=== PATIENT | male | born 1980 ===

== ENCOUNTER 2018-05-01 15:11 | Emergency (ER) | payer SELFPAY ==
[2018-05-01 15:19] VITALS: BMI 23.5
[2018-05-01 15:25] VITALS: PULSE 78; RESP 18; TEMP 98.7
--- NOTE | 2018-05-01 15:35 | ED PDOC ---
Arrival/HPI - General Chief Complaint: ENT Problem Time Seen by Provider: 05/01/18 15:14 Historian: Patient - History of Present Illness Narrative History of Present Illness (Text): 05/01/18 15:30 37 year old male, pmh including hyperthyroidism, nkda, here at the ER for biopsy for outpatient procedure. Pt. has hyperthryoidism, taking methimazole, on 03/24/2018 TSH less than 0.005/T4 24.9/T3 651. The follow up 04/15/2018 Thyroid panel TSH 0.005, T4 12.5/T3 358. Pt. was seen by the pmd Dr. Valenzuela about 2 days ago and gone over the result along with the thyroid sonogram result show multiple nodules which he would need outpatient ENT/Surgical speciality biopsy but he came to the ER instead. Pt. has no fever or chills, no night sweat, no rash, no numbness or tingling, no palpitation, no change in vision, no night sweat, no other medical or psychological complaints. Past Medical History - Provider Review Nursing Documentation Reviewed: Yes - Cardiac Hx Cardiac Disorders: No - Pulmonary Hx Respiratory Disorders: No - Neurological Hx Neurological Disorder: No - HEENT Hx HEENT Disorder: No - Renal Hx Renal Disorder: No - Endocrine/Metabolic Hx Endocrine Disorders: No - Hematological/Oncological Hx Blood Disorders: No - Integumentary Hx Dermatological Disorder: No - Musculoskeletal/Rheumatological Hx Musculoskeletal Disorders: No - Gastrointestinal Hx Gastritis: Yes - Genitourinary/Gynecological Hx Genitourinary Disorders: No - Psychiatric Hx Psychophysiologic Disorder: No Hx Substance Use: No Family/Social History - Physician Review Nursing Documentation Reviewed: Yes Family/Social History: Unknown Family HX Smoking Status: Never Smoked Hx Alcohol Use: No Hx Substance Use: No Allergies/Home Meds Allergies/Adverse Reactions: Allergies No Known Allergies Allergy (Verified 05/01/18 15:30) Home Medications: Home Meds Medication Instructions Recorded Confirmed No Known Home Med 05/01/18 05/01/18 Review of Systems - Review of Systems Constitutional: absent: Fatigue, Fevers Eyes: absent: Vision Changes ENT: absent: Hearing Changes Respiratory: absent: SOB, Cough Cardiovascular: absent: Chest Pain Gastrointestinal: absent: Abdominal Pain, Nausea, Vomiting Musculoskeletal: absent: Arthralgias, Back Pain Skin: absent: Rash, Pruritis Neurological: absent: Headache, Dizziness Psychiatric: absent: Anxiety, Depression Physical Exam Vital Signs Reviewed: Yes Vital Signs Temp Pulse Resp BP Pulse Ox 05/01/18 15:19 98.7 F 78 18 127/66 96 Temperature: Afebrile Blood Pressure: Normal Pulse: Regular Respiratory Rate: Normal Appearance: Positive for: Well-Appearing, Non-Toxic, Comfortable Pain Distress: None Mental Status: Positive for: Alert and Oriented X 3 - Systems Exam Head: Present: Atraumatic, Normocephalic Pupils: Present: PERRL Extroacular Muscles: Present: EOMI Conjunctiva: Present: Normal Mouth: Present: Moist Mucous Membranes Neck: Present: Normal Range of Motion Respiratory/Chest: Present: Clear to Auscultation, Good Air Exchange. No: Respiratory Distress, Accessory Muscle Use Cardiovascular: Present: Regular Rate and Rhythm, Normal S1, S2. No: Murmurs Abdomen: No: Tenderness, Distention, Peritoneal Signs Back: Present: Normal Inspection Upper Extremity: Present: Normal Inspection. No: Cyanosis, Edema Lower Extremity: Present: Normal Inspection. No: Edema Neurological: Present: GCS=15, Speech Normal, Motor Func Grossly Intact, Memory Normal Skin: Present: Warm, Dry, Normal Color. No: Rashes Psychiatric: Present: Alert, Oriented x 3, Normal Insight, Normal Concentration Medical Decision Making ED Course and Treatment: 05/01/18 15:54 -Pt.'s laboratory thyroid profile show significant improvement with methimazole , has pmd to follow up. I explained all labs with the patient and agreed these nodules needs to be performed with biopsy but we don't perform these procedures in the ER, will defer to ENT/general surgeon/endocrionologist for cofollow up with his own pmd. -Pt.'s vital sign is stable, no signs or symptoms of thyroid storm. -Discharge home with education on bring all your labs/radiology result to the ENT/surgeon/planning feeder within 2 days, follow up with your own pmd as well, return to the ER for any new or worsening signs or symptoms. - PA / SONOGRAPHER / Resident Statement /DO has reviewed & agrees with the documentation as recorded. Disposition/Present on Arrival - Present on Arrival Any Indicators Present on Arrival: No History of DVT/PE: No History of Uncontrolled Diabetes: No Urinary Catheter: No History of Decub. Ulcer: No History Surgical Site Infection Following: None - Disposition Have Diagnosis and Disposition been Completed?: Yes Diagnosis: General medical exam Disposition: HOME/ ROUTINE Disposition Time: 15:57 Patient Plan: Discharge Condition: GOOD Additional Instructions: -Discharge home with education on bring all your labs/radiology result to the ENT/surgeon/planning feeder within 2 days, follow up with your own pmd as well, return to the ER for any new or worsening signs or symptoms. Referrals: Steph Xie MD [Medical Doctor] - Follow up with primary Ciro Ley MD [Staff Provider] - Follow up with primary Fabrice Cisneros DO [Staff Provider] - Follow up with primary [facility] - Follow up with primary Forms: WORK NOTE
[2018-05-01 16:27] VITALS: BP 122/78; O2SAT 99
== END 2018-05-01 16:27 | disposition home or self-care (01) ==
LOC: ED 15:11
DX: Z00.00 Encounter for general adult medical examination without abnormal findings (principal)